=== PATIENT | female | born 1975 | race Caucasian/White ===

== ENCOUNTER 2024-11-23 16:42 | Emergency (ER) | payer OTHER ==
[~2024-11-23] VITALS: Ht 162.6 cm; Wt 75.0 kg
[2024-11-23 16:52] VITALS: O2SAT 99
[2024-11-23] MEDS ORDERED: KETO10TA2 MT (18:03)
[2024-11-23] MEDS ORDERED: ACET-2708 MT (18:03)
[2024-11-23] MEDS ORDERED: METH4TAB95 MT (18:03)
[2024-11-23] MEDS: HYDROCODONE/ACETAMINOPHEN 5/325MG TABLET PO ONE (19:11)
[2024-11-23] MEDS: ACETAMINOPHEN 325MG TABLET PO ONE (19:11)
[2024-11-23 19:13] VITALS: BP 129/85; PULSE 88; RESP 16; TEMP 36.8; O2SAT 99
== END 2024-11-23 19:14 | disposition home or self-care (01) ==
LOC: ER 16:42
DX: M54.31 Sciatica, right side (principal); Z88.2 Allergy status to sulfonamides; Z79.899 Other long term (current) drug therapy
CPT/HCPCS: 99283

== ENCOUNTER 2025-01-20 20:37 | Emergency (ER) | payer OTHER ==
[~2025-01-20] VITALS: Ht 157.5 cm; Wt 86.0 kg
[~2025-01-20 20:37] MED LIST: ACET-2708 MT; KETO10TA2 MT; METH4TAB95 MT
[2025-01-20] MEDS: IPRATROPIUM BROMIDE (0.02%) 0.5MG/2.5ML NEB HHN ONE (21:39)
[2025-01-20] MEDS: ALBUTEROL (0.083%) 2.5MG/3ML NEB HHN ONE (21:39)
[2025-01-20 21:40] VITALS: PULSE 108; RESP 16; O2SAT 98
[2025-01-20 22:28] LABS: BASOPHILS % 0.7 % (0.0-2.0); EOSINOPHILS % 2.5 % (0.0-5.0); HEMATOCRIT. 36.7 % (36.0-48.0); HEMOGLOBIN. 12.3 g/dL (12.0-16.0); LYMPHOCYTES % 45.8 % (20.0-50.0); MEAN PLATELET VOLUME 8.2 fl (7.4-10.4); MONOCYTES % 7.3 % (2.0-8.0); NEUTROPHILS % 43.7 % (40.0-76.0); PLATELET 260 x1000/uL (130-400); RED BLOOD CELL COUNT 4.16 mill/uL (4.2-5.4); RED CELL DISTRIBUTION WIDTH 13.1 % (11.6-14.6)
[2025-01-20] MEDS: METHYLPREDNISOLONE SOD SUCC 125MG/2ML (ACT-O-VIAL) IV ONE (22:29)
[2025-01-20] MEDS: SODIUM CHLORIDE 0.9% 1,000 ML IV ONE (22:29)
[2025-01-20 22:44] LABS: CREATININE 0.8 mg/dL (0.6-1.0); TROPONIN I HIGH SENSITIVITY < 4 ng/L (3.0-34); UREA NITROGEN BLOOD 18 mg/dL (9-23)
[2025-01-20 22:45] LABS: HCG SCREEN NEGATIVE
[2025-01-20 22:46] LABS: ASPARTATE AMINOTRANSFERASE 27 IU/L (<34); BILIRUBIN DIRECT 0.1 mg/dL (<=3.0); BILIRUBIN TOTAL 0.4 mg/dL (0.1-1.0); PROTEIN TOTAL 7.2 g/dL (6.0-8.3)
[2025-01-20] MEDS: ACETAMINOPHEN 325MG TABLET PO NR (23:07)
[2025-01-20] MEDS: POTASSIUM CHLORIDE 20MEQ/PACKET PO NR (23:07)
[2025-01-21 00:33] LABS: CLARITY URINE CLEAR (CLEAR); COLOR URINE YELLOW (YELLOW); GLUCOSE URINE NEGATIVE (NEGATIVE); KETONES URINE NEGATIVE (NEGATIVE); LEUKOCYTE ESTERASE URINE NEGATIVE (NEGATIVE); NITRITE URINE NEGATIVE (NEGATIVE); OCCULT BLOOD URINE NEGATIVE (NEGATIVE); PH URINE 5.5 (4.5-8.0); PROTEIN URINE NEGATIVE (NEGATIVE); SPECIFIC GRAVITY URINE 1.019 (1.005-1.030); UROBILINOGEN URINE 1.0 E.U./dL (0.2-1.0)
[2025-01-21 00:40] LABS: *AMPHETAMINES SCREEN URINE NEGATIVE (NEGATIVE); *BARBITURATES SCREEN URINE NEGATIVE (NEGATIVE); *BENZODIAZEPINES SCREEN URINE NEGATIVE (NEGATIVE); *COCAINE SCREEN URINE NEGATIVE (NEGATIVE)
[2025-01-21 00:41] LABS: CANNABINOID URINE SCREEN NEGATIVE (NEGATIVE); ECSTASY MDMA SCREEN URINE NEGATIVE (NEGATIVE); METHADONE URINE SCREEN NEGATIVE (NEGATIVE); OPIATES URINE SCREEN NEGATIVE (NEGATIVE); PHENCYCLIDINE URINE SCREEN NEGATIVE (NEGATIVE)
[2025-01-21 01:45] VITALS: BP 108/61; PULSE 105; RESP 15; TEMP 36.6; O2SAT 96
[2025-01-21] MEDS: GUAIFENESIN 200MG/10ML SUGAR FREE UDC PO NR (02:09)
[2025-01-21] MEDS: PANTOPRAZOLE 40MG DR TABLET PO SCH (02:10)
== END 2025-01-21 02:12 | disposition short-term general hospital (02) ==
LOC: ER 20:37 → EDBEDREQ 23:51 → EDBEDREQTM 23:51 → ER 01-21 02:12 → CMPBEDREQ 01-21 08:22
DX: J45.901 Unspecified asthma with (acute) exacerbation (principal); E87.6 Hypokalemia; R19.7 Diarrhea, unspecified; I10 Essential (primary) hypertension; Z72.0 Tobacco use; Z88.2 Allergy status to sulfonamides; Z79.899 Other long term (current) drug therapy
CPT/HCPCS: 80076; 80048; 80320; 84703; 83880; 85025; 84484; 36415; 71045; 94640; 93005; 96361; 96374; 99285; 87426; 80305; 81003; J2919; Z7610 ×6; J7030; 94070; A4606; G0480